=== PATIENT | male | born 1935 | race Caucasian/White ===

== ENCOUNTER 2023-06-20 08:56 | Emergency (ER) | payer MEDICARE, SELFPAY ==
[2023-06-20] VITALS (14 sets, daily range): BP systolic 149–170; BP diastolic 64–115; PULSE 54–80; RESP 10–18; TEMP 36.1; O2SAT 88–99
--- NOTE | ~2023-06-20 | CT_ITS ---
EXAMINATION: CT cervical spine wo con DATE: 06/20/2023 09:47 INDICATION: Fall. Neck pain. TECHNIQUE: Computed tomography (CT) of the cervical spine was performed without intravenous contrast. Automated exposure control and iterative reconstruction technique were employed. Exam dose: 193.14 mGy-cm total exam DLP. COMPARISON: None FINDINGS: There is a reversal of cervical curvature which may be due to muscle spasm. There is prominent degenerative change at the articulation of the anterior arch of C1 and the odontoi d process of C2. There is incomplete segmentation at the anterior and posterior elements at C3-4, congenital. There is severe degenerative disc disease at C4-5, C5-6 and C6-7 with minimal retrolisthesis at C4-5 and to a greater extent C5-6 and C6-7. There is minimal anterolisthesis at C7-T1. There is prominent degenerative change at the apophyseal joints throughout the cervical spine. There is prominent uncovertebral joint spurring in the mid and lower cervical spine. C1 and C2 are normally aligned and the odontoid process is intact. No fracture or dislocation or lock ed facet or prevertebral soft tissue swelling. Prominent emphysematous changes are noted at the included lung apices. IMPRESSION: Reversal of cervical curvature which may be due to muscle spasm; no fracture or dislocat ion or locked facet Severe cervical spondylosis Incomplete segmentation, congenital, at C3-4 Reviewed, dictated and finalized at [facility]. Reviewed, dictated and finalized at [facility]. IMPRESSION: Reversal of cervical curvature which may be due to muscle spasm; n o fracture or dislocation or locked facet Severe cervical spondylosis Incomplete segmentation, congenital, at C3-4
--- NOTE | ~2023-06-20 | CT_ITS ---
EXAMINATION: CT brain wo con DATE: 06/20/2023 09:47 INDICATION: Fall. Head injury, neck pain. TECHNIQUE: Computed tomography (CT) of the head was performed without intravenous contrast. The mA wa s adjusted according to patient size. Iterative reconstruction technique was employed. Exam dose: 60 5.33 mGy-cm total exam DLP. COMPARISON: None FINDINGS: Bilateral vertebral artery, basilar artery and bilateral carotid siphon and supraclinoid in ternal carotid artery calcifications. There is nonspecific diminished attenuation of the cerebral white matter, likely due to chronic small vessel ischemic changes. There is central and cortical cerebral and cerebellar atrophy. No intracranial mass lesion or hemorrh age, midline shift or mass effect or recent cerebrovascular accident is detected. No subdural or epidural hematoma is detected. Comparison is noted at the left orbit. The included paranasal sinuses and mastoid air cells are normally developed and aerated. No fracture or bone destruction of the cranial vault. IMPRESSION: Cerebral atherosclerosis and chronic small vessel ischemic changes of cerebral white mat ter Cerebral and cerebellar atrophy No skull fracture or acute intracranial finding Left orbital rims and Reviewed, dictated and finalized at [facility]. Reviewed, dictated and finalized at location [facility]. IMPRESSION: Cerebral atherosclerosis and chronic small vessel ischemic changes of cerebral white matter Cerebral and cerebellar atrophy No skull fracture or acute intracranial finding Left orbital rims and
--- NOTE | ~2023-06-20 | XR_ITS ---
XR chest 1V portable DATE: 06/20/2023 09:47 INDICATION: Fall. Generalized body pain. TECHNIQUE: 2 portable AP views on 06/20/2023 at 0942 hours COMPARISON: None FINDINGS: Normal heart size. Aortic calcification, mild aortic unfolding. No hilar or mediastinal enl argement. No pulmonary infiltrate or consolidation, pleural effusion or pulmonary vascular congestion or pneumo thorax. The lungs are moderately hyperinflated. Diffuse osteopenia. IMPRESSION: Moderate hyperinflation, consistent with COPD Aortic atherosclerosis No active cardiac pulmonary disease Osteopenia Reviewed, dictated and finalized at [facility].
--- NOTE | ~2023-06-20 | CT_ITS ---
EXAMINATION: CT thoracic lumbar wo con DATE: 06/20/2023 11:10 INDICATION: Fall. Back pain. TECHNIQUE: Computed tomography (CT) of the thoracic and lumbar spine was performed without intravenou s contrast. Automated exposure control and iterative reconstruction technique were employed. Exam dos e: 859.42 mGy-cm total exam DLP. COMPARISON: None FINDINGS: There is severe degenerative disc disease at C7. There is minimal anterolisthesis at C7-T1. There is mild anterior wedge compression fracture deformity of T9, acute, with slight offset of the u pper anterior vertebral body cortex. There is multilevel degenerative disc disease the lumbar spine, moderate at L2-3, moderately severe L 3-4 and severe at L4-5 and L5-S1. There is very prominent degenerative change at the apophyseal joints of the lower lumbar and lumbosac ral area but no pars interarticularis defect. No spondylolisthesis. No lumbar spine fracture is detected. Normal alignment at the sacroiliac joints. Emphysematous changes of the lungs. Left upper lobe fibrocalcific scarring. Extensive calcification of the thoracic and abdominal aorta without evidence of aneurysm. Large hepatic cyst. Up to 2.3 cm right renal cysts. IMPRESSION: Acute mild T9 compression fracture Multilevel degenerative disc disease of the lumbar spine Reviewed, dictated and finalized at [facility]. Reviewed, dictated and finalized at [facility].
--- NOTE | ~2023-06-20 | XR_ITS ---
XR pelvis 1-2V DATE: 06/20/2023 09:47 INDICATION: Fall. Pelvic pain. TECHNIQUE: 2 AP views COMPARISON: None FINDINGS: Prominent degenerative disc disease at L4-5 and L5-S1. Normal alignment at the pubic symphysis and sacroiliac joints. No pelvic fracture or bone destruction is detected. No fracture or dislocation of either hip is noted . IMPRESSION: Prominent degenerative disc disease at L4-5 and L5-S1 No pelvic fracture is detected Reviewed, dictated and finalized at location [facility].
--- NOTE | 2023-06-20 09:07 | ED.FALL ---
HPI - Fall General Chief Complaint: Fall Stated Complaint: fall Time Seen by Provider: 06/20/23 09:07 Source: patient Mode of arrival: ambulatory Limitations: no limitations History of Present Illness HPI Narrative: 87-year-old male with severe dementia had an accidental fall in bathroom with with his head wedged between the commode and the wall. He fell forwards on his face. No loss of consciousness. Blood sugar was noted to be stable. EMS was called who placed a C-collar and brought him to the hospital. No bruising or laceration known. No ENT bleeding. Patient is nonverbal. complaint: fall Onset (ago): minute(s) ( 30 minutes ago) Fall from: standing Fall witnessed: no Place fall occurred: home Loss of consciousness: none Prolonged down time: no Symptoms prior to fall: other ( patient is nonverbal and is unable to provide any history.) Location of injury: face, chest and abdomen Related Data Home Medications Medication Instructions Recorded Confirmed amlodipine 5 mg tablet 5 mg PO DAILY 06/20/23 06/20/23 donepezil 10 mg tablet 10 mg PO HS 06/20/23 06/20/23 memantine 10 mg tablet 10 mg PO BID 06/20/23 06/20/23 quetiapine 25 mg tablet 25 mg PO HS 06/20/23 06/20/23 Allergies Allergy/AdvReac Type Severity Reaction Status Date / Time Penicillins Allergy Unknown Verified 06/20/23 09:13 Review of Systems Review of Systems: Patient is severely demented and nonverbal. He is unable to provide any history. Constitutional: Constitutional: Reports as per HPI Eyes: Eyes: Reports as per HPI ENT: Reports system reviewed and no additional complaints, except as documented [facility] Past Medical History Medical History (Updated 06/20/23 @ 11:44 by Sunday Murphy MD) Dementia Dyslipidemia Hypertension Lipoma Surgical History Surgical History (Updated 06/20/23 @ 09:22 by Sunday Murphy MD) Hx of CABG Exam Const: General: no acute distress Limitations: altered mental status Other: patient is nonverbal HENMT: Head: normal to inspection Ears: external ears normal Face/Nose/Sinus: Normal external nose present Face and sinus: normal facial exam Mouth: Yes Normal oral and palatal mucosa present Throat: posterior oropharynx normal Eyes: Conjunctivae: conjunctivae normal Pupils: Equal, round and reactive pupils present EOM: EOMs intact bilaterally Direct Ophthalmoscopy: no photophobia Neck: Neck: normal visual inspection, no lymphadenopathy and no meningeal signs Chest: Chest palpation & inspection: normal inspection of the chest Resp: Effort & Inspection: normal respiratory effort Auscultation: clear to auscultation bilaterally Cardio: Rate: regular rate Rhythm: regular rhythm GI: Auscultation: normal bowel sounds : General: Yes no CVA tenderness Male General Exam: Yes normal external exam Other: no tenderness/ rigidity/rebound Back/Spine/Pelvis: Back: no CVA tenderness Skin: General skin exam: normal color Rashes: no rashes Wounds: no wounds Neuro: General: moves all extremities, no meningeal signs, no focal motor deficits and CN's II-XI intact bilaterally Cranial nerves: Yes Nystagmus not present Speech: normal speech Gait exam (Neuro): Normal gait present Extrem: General: normal to inspection and no clubbing, cyanosis or edema Psych: Mental Status: mental status grossly normal Affect: normal affect Attitude: cooperative Course Course Emergency Course: accidental fall head injury CT of C-spine and head were unremarkable. X-rays of his pelvis and chest did not show any acute fracture or dislocation. The patient was able to get up and walk to the chair. patient appeared to have some tenderness in the midthoracic spine. Got a CT of the thoracic and the lumbar spine which revealed an acute T9 compression fracture. Vital Signs Vital signs: Vital Signs Temperature 36.1 C L 06/20/23 08:56 Pulse Rate 60 06/20/23 08:56 Respirator
--- NOTE | 2023-06-20 09:46 | PC.NURSE ---
PT HAS RETURNED FROM CT. FAMILY AT BEDSIDE. NAD NOTED. WILL CONTINUE TO MONITOR.
--- NOTE | 2023-06-20 10:47 | PC.NURSE ---
ERP AND WERE ABLE TO GET PT UP AND TO CHAIR. PT MOANS WITH STANDING AND SITTING, POINTS TO MID BACK WHEN ASKED WHAT HURTS. PT HAS GARBLED SPEECH NOTED, NORM PER . PT IS MORE ALERT AND ACTIVE THAN UPON ARRIVAL. PT ROSANA, REPORTS PT NORMALLY SHUFFLES AROUND THE HOUSE WITHOUT A WALKER. PT IS UP TO WC FOR CT WITH ASSISTANCE. MULTIPLE ATTEMPTS TO CONTACT PHYSICAL THERAPY ERP REQUESTED, UNSUCCESSFULLY. WILL CONTINUE TO MONITOR.
[2023-06-20] MEDS: KETOROLAC 30 MG/ML VIAL (*BKC) IM (10:53)
--- NOTE | 2023-06-20 11:13 | PC.NURSE ---
PT HAS RETURNED FROM CT AT THIS TIME. AT BEDSIDE. PT IS AWAITING RESULTS. WILL CONTINUE TO MONITOR.
== END 2023-06-20 11:50 | disposition home or self-care (01) ==
PROVIDERS: Emergency Provider Internal Medicine Critical Care Medicine; PCP Family Medicine
DX: S22.070A Wedge compression fracture of T9-T10 vertebra, initial encounter for closed fracture (principal); S09.90XA Unspecified injury of head, initial encounter; F03.90 Unspecified dementia, unspecified severity, without behavioral disturbance, psychotic disturbance, mood disturbance, and anxiety; E78.5 Hyperlipidemia, unspecified; I10 Essential (primary) hypertension; Z79.899 Other long term (current) drug therapy; Z95.1 Presence of aortocoronary bypass graft; W18.39XA Other fall on same level, initial encounter; Y92.002 Bathroom of unspecified non-institutional (private) residence as the place of occurrence of the external cause
CPT/HCPCS: 70450; 71045; 72125; 72128; 72131; 72170; 96372; 99284; J1885